=== PATIENT | male | born 1950 | race Caucasian/White ===

== ENCOUNTER 2024-07-22 12:35 | Emergency (ER) | payer MEDICARE, OTHER, SELFPAY ==
[2024-07-22 12:36] VITALS: BP 153/90
[2024-07-22 13:08] LABS: % Basophils 1.9 % (0-2); % Eosinophils 11.1 % (0-6); % Immature Granulocytes 0.2 % (0-0.5); % Lymphocytes 23.2 % (20.5-51.1); % Monocytes 10.4 % (1.7-9.3); % Neutrophils 53.2 % (42.2-75.2); Absolute Basophils 0.1 10^3/uL (0-0.2); Absolute Eosinophils 0.6 10^3/uL (0-0.7); Absolute Lymphocytes 1.2 10^3/uL (1.2-3.4); Absolute Monocytes 0.6 10^3/uL (0.1-0.6); Absolute Neutrophils 2.8 10^3/uL (1.4-6.5); Hematocrit 46.4 % (39.0-52.0); Mean Corp Hgb Conc. 32.3 g/dL (33.0-37.0); Mean Corpuscular Hgb 30.9 pg (27.0-31.0); Mean Corpuscular Volume 95.7 fL (80.0-94.0); Mean Platelet Volume 8.9 fL (7.4-10.4); Nucleated Red Blood Cells % 0 % (-); Platelet Count 286 10^3/uL (130-400); Red Blood Cell Count 4.85 10^6/uL (4.70-6.10); Red Cell Dist. Width 13.9 % (11.5-14.5); White Blood Cell Count 5.3 10^3/uL (4.8-10.8)
[2024-07-22 13:17] LABS: ALT (SGPT) 23 U/L (0-50); AST (SGOT) 45 U/L (17-59); Albumin 4.9 g/dl (3.5-5.0); Alkaline Phosphatase 56 U/L (38-126); Blood Urea Nitrogen 35 mg/dl (9-20); Calcium 9.7 mg/dl (8.4-10.2); Carbon Dioxide 31 mmol/L (22-30); Chloride 98 mmol/L (98-107); Glucose 72 mg/dl (70-99); Potassium 4.6 mmol/L (3.5-5.1); Sodium 137 mmol/L (135-145); Total Bilirubin 0.5 mg/dl (0.2-1.3); Total Protein 7.4 g/dl (6.3-8.2); eGFR > 60.00
[2024-07-22 13:18] LABS: COVID-19 Antigen Negative (Negative)
--- NOTE | 2024-07-22 14:13 | ED.GENMED ---
History of Present Illness
General
Chief Complaint: Breathing Problem
Source: patient
Exam Limitations: none
Time Seen by Provider: 07/22/24 14:00
History of Present Illness
History of Present Illness:
See MDM
Past History
Past History
ED Past Medical History: HTN and IDDM
ED Past Surgical History: Orthopedic
Social History
Tobacco: Non-smoker
Phy Exam
Physical Exam
Physical Exam:
See MDM
Scores
Heart Failure Risk
Heart Failure Risk Score: Not Applicable
Course
Orders/Labs/Results
Orders:
Orders
07/22/24 12:40
Electrocardiogram (*1) Urgent
Reason for Study: Shortness of Breath
07/22/24 12:41
EKG- Treatment ONCE
07/22/24 12:56
CMP [Comprehensive Metabolic Panel] Urgent
COVID-19 Antigen Urgent
Source: Nasal Swab
Complete Blood Count/With Diff Urgent
Influenza A+B Rapid Molecular Urgent
LAITH Source: Nasal Swab
Specimen Description:
07/22/24 14:12
Dexamethasone Pf [Decadron] 10 mg PO NOW STA
Ipratropium/Albuterol Sulfate [Duoneb] 3 ml INH R NOW ONE
CR Chest - 2 Views Urgent
Comment:
Reason For Exam: SOB, cough
Abnormal Lab Results
07/22/24
12:56
MCV 95.7 H fL
(80.0-94.0)
MCHC 32.3 L g/dL
(33.0-37.0)
Monocytes % 10.4 H %
(1.7-9.3)
Eosinophils % 11.1 H %
(0-6)
Carbon Dioxide 31 H mmol/L
(22-30)
BUN 35 H mg/dl
(9-20)
07/22/24 12:56
07/22/24 12:56
Vital Signs
Initial and Last Documented VS:
Initial Vital Signs
Temp Pulse Resp BP Pulse Ox
98.9 F 82 18 153/90 94
07/22/24 12:36 07/22/24 12:36 07/22/24 12:36 07/22/24 12:36 07/22/24 12:36
Last Documented Vital Signs
Temp Pulse Resp BP Pulse Ox
98.9 F 65 20 131/72 131
07/22/24 12:36 07/22/24 16:25 07/22/24 16:25 07/22/24 16:25 07/22/24 16:25
MDM/Problems Addressed
Differential Diagnosis Includes:
HPI and MDM Narrative:
74-year-old male presenting for evaluation of cough and wheezing. Patient states this has been ongoing for couple weeks. He finished 2 courses of antibiotics. He is unsure if this is related to his inhaled insulin. Patient denies any fevers. On
exam, patient does have significant amount of expiratory wheezing. Will obtain chest x-ray. Screening EKG nonischemic. Patient otherwise extremely well-appearing and nontoxic. Patient given DuoNeb and Decadron
Physical exam
General: Well appearing and non-toxic
HEENT: protecting airway
Neck: appears supple
CV: No evidence of cyanosis. Regular rate and rhythm
Resp: No accessory muscle use. Expiratory wheezing throughout
Abd: Non-distended
Extremities: No deformities
Neuro: alert
Psych: Normal affect
Skin: Intact
Problems Addressed including Acute and Chronic Conditions affecting care:
1. Bronchitis
Acuity: acute
Prognosis: stable
Details: Given persistent symptoms, will obtain chest x-ray. Patient DuoNeb and Decadron
Updates
Chest x-ray clear. Patient feeling somewhat better. Discussed steroid taper and outpatient follow-up
Differential Diagnosis (but not limited to): Bronchitis, pneumonia
Testing considered: Troponin
Drug therapy (if applicable): OTC meds, please see d/c instruction regarding Rx drugs
Amount and/or Complexity of Data Reviewed
Clinical info obtained from: Patient
External data reviewed: N/A
Labs I independently reviewed (but not limited to): White blood cell count normal
Radiology: X-ray independently reviewed: Chest x-ray clear
Pulse Ox: not hypoxic
EKG independently reviewed: Sinus rhythm, normal axis, no STEMI
Hat Cleaner: N/A
Critical Care: N/A
Risk of Complication:
Social Determinants of health: Good social support
Discussed with other providers: N/A
Escalation of Care includes Admit/Obs: After being observed in the Emergency Department, pt stable for discharge.
Occasional wrong word or 'sound a like' substitutions may have occurred due to the inherent limitations of voice recognition software. Read the chart carefully and recognize, using context, where substitutions have occurred.
*Critical Care Note
Total Time (30-74mins, 75-104mins- exclusive of procedures): Not Applicable
ED Attending Note
-
Portions of this chart may have been created with voice recognition software.� Occasional wrong word or��sound alike� substitutions may have occurred due to the inherent limitations of voice recognition software.
Discharge Plan
Departure
Patient Disposition: Home (Routine Discharge)
Date of Disposition: 07/22/24
Time of Disposition: 16:33
Patient with high blood pressure during this ER visit?: No
Discharge Problem:
Acute bronchitis
Instructions: Acute Bronchitis, Adult (DC)
Prescriptions:
New
prednisone 10 mg tablet
See Rx Instructions .ROUTE .COMPLEX Qty: 45 0RF
Rx Instructions:
5 tabs day 1-3, 4 tabs day 4-6, 3 tabs day 7-9, 2 tabs day 10-12, 1 tab day 13-15
albuterol sulfate 90 mcg/actuation HFA aerosol inhaler
2 puff inhalation Q6H PRN (Reason: shortness of breath or wheezing) Qty: 8.5 0RF
No Action
amoxicillin-pot clavulanate 1 TABLET tablet
1 tab PO Q12 Qty: 6 0RF
prednisone 50 MG tablet
50 mg PO DAILY Qty: 2 0RF
Referrals:
Saúl Marti DO [Family Provider] -
Activity Restrictions/Additional Instructions:
Please return for any worsening symptoms.
You may return at any time if you have further concerns.
Please follow up with your doctor at the first available appointment, preferably this week.
Thank you for choosing [facility].
Interventions
Interventions:
*Risk Screen - Suicide Last Done: 07/22/24 12:36
*General Assessment Last Done: 07/22/24 12:36
*Neglect/Abuse Screening Last Done: 07/22/24 12:36
*ED COVID-19 Vaccine History Last Done: 07/22/24 12:36
ED- Cardiac Assessment Last Done: 07/22/24 14:49
ED- Pulmonary Assessment Last Done: 07/22/24 14:49
Discharge Date and Time
Print Language: [id number]
[2024-07-22] MEDS: DUONEB 3 ML INH (14:33)
[2024-07-22] MEDS: DECADRON 10 MG PO (14:34)
[2024-07-22 15:33] VITALS: BP 134/69
[2024-07-22 16:25] VITALS: BP 131/72
== END 2024-07-22 16:46 | disposition home or self-care (01) ==
LOC: EMR 12:35
PROVIDERS: Emergency Medicine; EMERGENCY PHYSICIAN Student in an Organized Health Care Education/Training Program; FAMILY PHYSICIAN Family Medicine
DX: J20.9 Acute bronchitis, unspecified (principal); I10 Essential (primary) hypertension; E11.9 Type 2 diabetes mellitus without complications; Z79.4 Long term (current) use of insulin
CPT/HCPCS: 99285; 94640; 71046; 80053; 85025; 87502; 87811; 93005

== ENCOUNTER → 2024-09-15 13:36 | Outpatient (REF) | payer MEDICARE, OTHER, SELFPAY | LOC: PAVMRI 13:36 | PROVIDERS: ATTENDING PHYSICIAN Physician Assistant Surgical; FAMILY PHYSICIAN Family Medicine | DX: M25.561 Pain in right knee (principal) | CPT/HCPCS: 73721 ==

== ENCOUNTER → 2024-11-20 08:20 | Outpatient (REF) | payer MEDICARE, OTHER, SELFPAY ==
[2024-11-20 08:57] LABS: Hematocrit 42.8 % (39.0-52.0); Hemoglobin 14.3 g/dL (13.0-18.0); Mean Corp Hgb Conc. 33.4 g/dL (33.0-37.0); Mean Corpuscular Hgb 31.6 pg (27.0-31.0); Mean Corpuscular Volume 94.5 fL (80.0-94.0); Mean Platelet Volume 9.2 fL (7.4-10.4); Platelet Count 264 10^3/uL (130-400); Red Blood Cell Count 4.53 10^6/uL (4.70-6.10); Red Cell Dist. Width 13.6 % (11.5-14.5); White Blood Cell Count 5.5 10^3/uL (4.8-10.8)
[2024-11-20 09:36] LABS: Blood Urea Nitrogen 34 mg/dl (9-20); Calcium 9.8 mg/dl (8.4-10.2); Carbon Dioxide 29 mmol/L (22-30); Chloride 101 mmol/L (98-107); Glucose 102 mg/dl (70-99); Potassium 4.4 mmol/L (3.5-5.1); Sodium 140 mmol/L (135-145); eGFR 58.01
== END ==
LOC: SDSPAT 08:20
PROVIDERS: ATTENDING PHYSICIAN Specialist; FAMILY PHYSICIAN Family Medicine
DX: Z01.818 Encounter for other preprocedural examination (principal)
CPT/HCPCS: 36415; 80048; 85027; 93005

== ENCOUNTER 2024-11-28 06:09 | Day surgery (SDC) | payer MEDICARE, OTHER, SELFPAY ==
[2024-11-20 13:43] VITALS: BMI 23.9
[2024-11-28] VITALS (8 sets, daily range): BP systolic 131–157; BP diastolic 72–85; BMI 23.9
[2024-11-28] MEDS: TYLENOL 1000 MG PO (10:28)
[2024-11-28] MEDS: CELEBREX 200 MG PO (10:28)
[2024-11-28 10:39] LABS: Glucose - Point of Care 122 mg/dl (70-99)
[2024-11-28] MEDS: NORMOSOL-R/PLASMALYTE-A 1000 IV (10:44)
[2024-11-28 12:40] LABS: Glucose - Point of Care 138 mg/dl (70-99)
== END 2024-11-28 14:15 | disposition home or self-care (01) ==
LOC: SDS 06:09
PROVIDERS: ATTENDING PHYSICIAN Specialist; FAMILY PHYSICIAN Family Medicine
DX: S83.241A Other tear of medial meniscus, current injury, right knee, initial encounter (principal); S83.281A Other tear of lateral meniscus, current injury, right knee, initial encounter; X58.XXXA Exposure to other specified factors, initial encounter
CPT/HCPCS: 29881; 82962